=== PATIENT | male | born 1940 | race Caucasian/White ===

== ENCOUNTER → 2020-09-30 13:50 | Outpatient (BNVA) | payer MEDICARE, SELFPAY | PROVIDERS: PCP Internal Medicine; Visit Provider Urology | DX: N40.1 Benign prostatic hyperplasia with lower urinary tract symptoms (principal); R39.12 Poor urinary stream; R35.1 Nocturia; R33.9 Retention of urine, unspecified; N32.89 Other specified disorders of bladder; N13.8 Other obstructive and reflux uropathy | CPT/HCPCS: 51798; 99212 ==

== ENCOUNTER → 2021-12-18 14:44 | Outpatient (BNVA) | payer MEDICARE, SELFPAY | PROVIDERS: PCP Internal Medicine; Visit Provider Urology | DX: N40.1 Benign prostatic hyperplasia with lower urinary tract symptoms (principal); N13.8 Other obstructive and reflux uropathy; R39.12 Poor urinary stream; R35.1 Nocturia | CPT/HCPCS: 51798; 99212 ==

== ENCOUNTER → 2022-12-21 13:08 | Outpatient (BNVA) | payer MEDICARE, SELFPAY | PROVIDERS: Visit Provider Urology | DX: N40.1 Benign prostatic hyperplasia with lower urinary tract symptoms (principal); N13.8 Other obstructive and reflux uropathy; R33.9 Retention of urine, unspecified; R35.1 Nocturia; Z79.899 Other long term (current) drug therapy | CPT/HCPCS: 51798; 99212 ==

== ENCOUNTER 2025-01-17 10:12 | Outpatient (AMB) | payer MEDICARE, SELFPAY ==
--- NOTE | 2025-01-17 10:48 | MHC.OFFVIS ---
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 They are a patient of Dr Nieves. He is seen for the following urologic conditions - bladder wall thickening - nocturia PVR today 160 cc prior 100 cc Happy with current urination Known trabeculated bladder Takes finasteride 1 day weekly PSA 12/09 2.0 [place] normal Twelve month follow-up Lower Urinary Tract Symptoms: Remains on finasteride Current visit is for followup symptom evaluation of, lower urinary tract symptoms, predominate obstructive symptoms. Current treatment includes has been treated for prostate issues since 2004 Stable on finasteride. Prior treatments include medication, 5-alpha reductase, finasteride. Prostate Symptom Score 09/06 , Mild (0-8), Bother 2. Symptoms include incomplete emptying, and are progressing. Prostate testing - renal bladder ultrasound 04/06 - postvoid residual 144 cc, trabeculated bladder - prostate volume 94 cc Prostate volume 30-50gm. Testing at next visit will include bladder scan [facility] Medical History Shortness of breath Anemia Coronary artery disease BPH (benign prostatic hyperplasia) GERD (gastroesophageal reflux disease) Hyperlipidemia HTN (hypertension) Enlarged prostate Benign prostatic hyperplasia with lower urinary tract symptoms Feeling of incomplete bladder emptying Results AMB Urinalysis, Automated UA Leukoctes 0 [place]/uL Last Edit by Shannan Toth on 01/17/25 16:12 UA Nitrite Negative Last Edit by Shannan Toth on 01/17/25 16:12 UA Urobilinogen 0.2 mg/dL Last Edit by Shannan Toth on 01/17/25 16:12 UA Protein 0 mg/dL Last Edit by Shannan Toth on 01/17/25 16:12 UA pH 6.0 Last Edit by Shannan Toth on 01/17/25 16:12 UA Blood 0 [place]/uL Last Edit by Shannan Toth on 01/17/25 16:12 UA Specific [place] 1.010 Last Edit by Shannan Toth on 01/17/25 16:12 UA Ketone Negative Last Edit by Shannan Toth on 01/17/25 16:12 UA Bilirubin 0 mg/dL Last Edit by Shannan Toth on 01/17/25 16:12 UA Glucose 0 mg/dL Last Edit by Shannan Toth on 01/17/25 16:12 Assessment & Plan Assessment & Plan Orders: Orders AMB Urinalysis Automated Today Z13.9 - Encounter for screening, unspecified Medications: Refilled finasteride 5 mg PO DAILY 90 tabs 3RF 90 days N32.89 - Other specified disorders of bladder Coding
== END 2025-01-17 11:27 | disposition home or self-care (01) ==
LOC: HO.HUSH 10:12
PROVIDERS: PCP Internal Medicine; Visit Provider Urology
DX: Z13.9 Encounter for screening, unspecified (principal)

== ENCOUNTER → 2025-01-17 10:12 | Outpatient (BNVA) | payer MEDICARE, SELFPAY | PROVIDERS: PCP Internal Medicine; Visit Provider Urology | DX: N40.1 Benign prostatic hyperplasia with lower urinary tract symptoms (principal); N13.8 Other obstructive and reflux uropathy; R33.9 Retention of urine, unspecified; R39.12 Poor urinary stream; R35.1 Nocturia | CPT/HCPCS: 81003 ==